=== PATIENT | male | born 1940 | race Caucasian/White ===

== ENCOUNTER 2019-04-25 15:27 | Emergency (ER) | payer OTHER ==
[~2019-04-25] VITALS: Ht 175.3 cm; Wt 86.2 kg
[2019-04-25] MEDS ORDERED: NORTRIPTYLINE H75 M1 PO (15:46)
[2019-04-25] MEDS ORDERED: KLOR-CON 10 ER10 MEQ PO (15:46)
[2019-04-25] MEDS ORDERED: NORVASC 2.5 MG2.5 M1 PO (15:46)
[2019-04-25] MEDS ORDERED: PROSCAR 5MG TABL5 M1 PO (15:47)
[2019-04-25] MEDS ORDERED: CARDURA2 MG PO (15:47)
[2019-04-25] MEDS ORDERED: PRAVASTATIN SOD80 MG PO (15:47)
[2019-04-25] MEDS ORDERED: NORCO 5-325 TA1 EAC1 PO (16:34)
[2019-04-25 16:59] VITALS: BP 158/83
== END 2019-04-25 17:00 | disposition home or self-care (01) ==
LOC: M.ERS 15:27
DX: M25.552 Pain in left hip (principal); I10 Essential (primary) hypertension; F03.90 Unspecified dementia, unspecified severity, without behavioral disturbance, psychotic disturbance, mood disturbance, and anxiety; W19.XXXA Unspecified fall, initial encounter; Y93.89 Activity, other specified; Y92.89 Other specified places as the place of occurrence of the external cause; Y99.8 Other external cause status

== ENCOUNTER 2020-01-11 11:20 | Emergency (ER) | payer MEDICARE ==
[~2020-01-11] VITALS: Ht 177.8 cm; Wt 83.9 kg
[~2020-01-11 11:20] MED LIST: CARDURA2 MG PO; KLOR-CON 10 ER10 MEQ PO; NORCO 5-325 TA1 EAC1 PO; NORTRIPTYLINE H75 M1 PO; NORVASC 2.5 MG2.5 M1 PO; PRAVASTATIN SOD80 MG PO; PROSCAR 5MG TABL5 M1 PO
[2020-01-11 12:20] VITALS: BP 114/72
== END 2020-01-11 12:20 | disposition home or self-care (01) ==
LOC: M.ERS 11:20
DX: S61.211A Laceration without foreign body of left index finger without damage to nail, initial encounter (principal); I10 Essential (primary) hypertension; W26.8XXA Contact with other sharp object(s), not elsewhere classified, initial encounter; Y93.89 Activity, other specified; Y92.89 Other specified places as the place of occurrence of the external cause; Y99.8 Other external cause status